=== PATIENT | female | born 2000 | race Asian ===

== ENCOUNTER 2021-01-15 00:41 | Emergency (ER) | payer BC, OTHER ==
[~2021-01-15] VITALS: Ht 157.5 cm; Wt 78.9 kg
[2021-01-15 01:23] LABS: PLATELET COUNT 125 K/uL (152-353)
[2021-01-15 03:15] VITALS: BP 165/115; TEMP 98.3
== END 2021-01-15 03:15 | disposition short-term general hospital (02) ==
LOC: ED 00:41
PROVIDERS: Emergency Medicine Emergency Medical Services
PROC: 0T9B70Z Drainage of Bladder with Drainage Device, Via Natural or Artificial Opening (ICD-10-PCS; principal; 2021-01-15)
DX: O15.02 Eclampsia complicating pregnancy, second trimester (principal); Z3A.23 23 weeks gestation of pregnancy; Z11.52 Encounter for screening for COVID-19
CPT/HCPCS: 36415; 51702; 80053; 81000; 83690; 83735; 85027; 87088; 87635; 96360; 96365; 96366; 99285; J2060; J2270; J2405; J3490; U0003

== ENCOUNTER 2021-06-02 22:19 | Emergency (ER) | payer BC, OTHER ==
[~2021-06-02] VITALS: Ht 157.5 cm; Wt 68.0 kg
[2021-06-02 23:12] LABS: PLATELET COUNT 232 K/uL (152-353)
[2021-06-02 23:22] LABS: POTASSIUM 3.7 mmol/L (3.6-5.2)
[2021-06-02 23:30] LABS: PARTIAL THROMBOPLASTIN TIME 26.1 SECONDS (24.5-33.6)
[2021-06-03] VITALS: BP 131/81; TEMP 97.9
== END 2021-06-03 00:05 | disposition home or self-care (01) ==
LOC: ED 22:19
PROVIDERS: Hospitalist
DX: O20.0 Threatened abortion (principal); Z3A.08 8 weeks gestation of pregnancy; F12.10 Cannabis abuse, uncomplicated
CPT/HCPCS: 36415; 80053; 80307; 80320; 81000; 81025; 84702; 85027; 85610; 85730; 99284